=== PATIENT | female | born 1990 | race Caucasian/White ===

== ENCOUNTER 2017-04-01 17:56 | Observation (INO) | payer BC ==
[~2017-04-01] VITALS: Ht 172.7 cm; Wt 71.3 kg
[2017-04-01] VITALS (7 sets, daily range): BP systolic 104–120; BP diastolic 65–73; PULSE 93–105; RESP 16–18; TEMP 98.4–99; O2SAT 94–99
[~2017-04-01 17:56] MED LIST: IBUP600T26 PO; LORTA5 PO
[2017-04-01] MEDS ORDERED: DEPA500T PO (18:09)
[2017-04-01] MEDS ORDERED: SULF1TAB23 PO (18:09)
[2017-04-01] MEDS ORDERED: SODIUM CHLOR 0.9% 1000 ML INJ 1,000 ML IV SCH (18:13)
--- NOTE | 2017-04-01 18:13 | PD ---
HPI Chief Complaint: Pain: Acute or Chronic Time Seen by Provider: 18:08 Travel History International Travel<30 days: Yes Contact w/Intl Traveler<30days: Yes Name of Country Traveled to: [place] Traveled to known affect area: No History of Present Illness HPI 26-year-old female presents the emergency department with sudden onset generalized myalgias to both lower extremities and upper extremities since taking prescribed Bactrim for a UTI that was diagnosed this morning by her primary care physician. Patient states she went home and took a nap and woke up with pain in the lower extremities which has worsened over the past 5 hours. She denies fever, chills, shortness of breath, difficulty swallowing or other symptoms. Patient's pain is a 9 out of 10 and is a generalized pain. She is worse with movement and with palpation. There is no rash. She has no abdominal pain, nausea, or flank pain. Patient does have a history of returning recently from 2 weeks in [place] and [facility]. Patient states she felt fine this morning. Patient has a history of allergies to bee stings and Percocet. PFSH Past Medical History Hx Anticoagulant Therapy: No ADHD: Yes Asthma: Yes (EXERCISE INDUCED) Cancer: No Cardiovascular Problems: No Diabetes: No Diminished Hearing: No Glaucoma: No Hepatitis: No Hiatal Hernia: No Hypertension: No Musculoskeletal: Yes (TORN ACL) Respiratory: Yes (asthma) Immunizations Current: Yes Migraines: Yes Thyroid Disease: No PNEUMOCCOCAL Vaccine (Year): 2 ?: Not Past Surgical History Oral Surgery: Yes (t and a) Pacemaker: No Tonsillectomy: Yes (ADENOIDS REMOVED ALSO 1997) Other Surgery: Yes (acl repair) Social History Alcohol Use: Yes (rare) Tobacco Use: No Substance Use: No Allergies-Medications (Allergen,Severity, Reaction): Coded Allergies: Bee Sting (Verified Allergy, Severe, Anaphylaxis, 04/01/17) Percocet (Verified Allergy, Severe, Nausea/Vomiting, 04/01/17) Reported Meds & Prescriptions Reported Meds & Active Scripts Active Reported Sulfamethoxazole-Trimethoprim 800-160 Mg Tab 1 Tab PO BID Depakote DR (Divalproex Sodium) 500 Mg Tabdr 500 Mg PO BID Review of Systems General / Constitutional: No: Fever Eyes: No: Visual changes HENT: No: Headaches Cardiovascular: No: Chest Pain or Discomfort Respiratory: No: Shortness of Breath Gastrointestinal: No: Abdominal Pain Genitourinary: Positive: Dysuria Musculoskeletal: Positive: Myalgias, No: Pain Skin: No Rash Neurologic: No: Weakness Psychiatric: No: Depression Endocrine: No: Polydipsia Hematologic/Lymphatic: No: Easy Bruising Physical Exam Narrative GENERAL: Patient appears in mild to moderate distress SKIN: Warm and dry. No rash. Normal color. Normal turgor. HEAD: Atraumatic. Normocephalic. EYES: Pupils equal and round. No scleral icterus. No injection or drainage. ENT: No nasal bleeding or discharge. Mucous membranes pink and moist. Pharynx clear. Airway is patent. No nuchal rigidity. NECK: Trachea midline. No JVD. Supple and nontender. No lymphadenopathy. CARDIOVASCULAR: Regular rate and rhythm. RESPIRATORY: No accessory muscle use. Clear to auscultation. Breath sounds equal bilaterally. GASTROINTESTINAL: Abdomen soft, non-tender, nondistended. Hepatic and splenic margins not palpable. MUSCULOSKELETAL: Extremities without clubbing, cyanosis, or edema. No obvious deformities. Patient has generalized muscular pain which is soft tissue in nature to both upper and lower extremities as well as back. NEUROLOGICAL: Awake and alert. No obvious cranial nerve deficits. Motor grossly within normal limits. Five out of 5 muscle strength in the arms and legs. Normal speech. PSYCHIATRIC: Appropriate mood and affect; insight and judgment normal. Data Data Last Documented VS Vital Signs Date Time Temp Pulse Resp B/P Pulse Ox O2 Delivery O2 Flow Rate FiO2 04/01/17 19:42 96 18 111/66 96 Room Air 04/01/17 17:59 98.4 Orders Complete Blood Count With Diff (04/01/17 18:13) Comprehensive Metabolic Panel (04/01/17 18:13) Ecg Monitoring (04/01/17 18:13) Iv Access Insert/Monitor (04/01/17 18:13) Oximetry (04/01/17 18:13) Diphenhydramine Inj (Benadryl Inj) (04/01/17 18:15) Methylprednisolone So Succ Inj (Solumedr (04/01/17 18:15) Famotidine Inj (Pepcid Inj) (04/01/17 18:15) Sodium Chlor 0.9% 1000 Ml Inj (Ns 1000 M (04/01/17 18:13) Sodium Chloride 0.9% Flush (Ns Flush) (04/01/17 18:15) Ketorolac Inj (Toradol Inj) (04/01/17 18:15) Westergren Sedimentation Rate (04/01/17 18:13) C-Reactive Protein (Crp) (04/01/17 18:13) Lactic Acid (04/01/17 18:18) Methylprednisolone So Succ Inj (Solumedr (04/01/17 18:45) Blood Culture (04/01/17 19:27) Influenzae A/B Antigen (04/01/17 19:27) Morphine Inj (Morphine Inj) (04/01/17 19:30) Ondansetron Inj (Zofran Inj) (04/01/17 19:30) Creatine Kinase (Cpk) (04/01/17 18:25) CKMB (04/01/17 18:25) CKMB% (04/01/17 18:25) Sodium Chlor 0.9% 1000 Ml Inj (Ns 1000 M (04/01/17 20:30) Drug Screen, Random Urine (04/01/17 20:26) Ed Urine Pregnancytest Poc (04/01/17 20:26) Admit Order (Ed Use Only) (04/01/17 21:25) Labs Laboratory Tests Test 04/01/17 04/01/17 18:25 20:30 White Blood Count 13.2 TH/MM3 Red Blood Count 4.57 MIL/MM3 Hemoglobin 14.2 GM/DL Hematocrit 42.1 % Mean Corpuscular Volume 92.1 FL Mean Corpuscular Hemoglobin 31.0 PG Mean Corpuscular Hemoglobin 33.7 % Concent Red Cell Distribution Width 12.9 % Platelet Count 241 TH/MM3 Mean Platelet Volume 8.5 FL Neutrophils (%) (Auto) 85.9 % Lymphocytes (%) (Auto) 7.4 % Monocytes (%) (Auto) 5.9 % Eosinophils (%) (Auto) 0.3 % Basophils (%) (Auto) 0.5 % Neutrophils # (Auto) 11.3 TH/MM3 Lymphocytes # (Auto) 1.0 TH/MM3 Monocytes # (Auto) 0.8 TH/MM3 Eosinophils # (Auto) 0.0 TH/MM3 Basophils # (Auto) 0.1 TH/MM3 CBC Comment AUTO DIFF Differential Comment AUTO DIFF CONFIRMED Erythrocyte Sedimentation Rate 5 mm/hr Sodium Level 139 MEQ/L Potassium Level 4.2 MEQ/L Chloride Level 107 MEQ/L Carbon Dioxide Level 23.5 MEQ/L Anion Gap 9 MEQ/L Blood Urea Nitrogen 11 MG/DL Creatinine 0.92 MG/DL Estimat Glomerular Filtration 75 ML/MIN Rate Random Glucose 93 MG/DL Lactic Acid Level 1.4 mmol/L Calcium Level 9.0 MG/DL Total Bilirubin 0.4 MG/DL Aspartate Amino Transf 65 U/L (AST/SGOT) Alanine Aminotransferase 54 U/L (ALT/SGPT) Alkaline Phosphatase 63 U/L Total Creatine Kinase 1378 U/L Creatine Kinase MB 1.0 NG/ML Creatine Kinase MB % 0.1 % C-Reactive Protein LESS THAN 0.29 MG/DL Total Protein 7.5 GM/DL Albumin 3.8 GM/DL Urine Opiates Screen NEG Urine Barbiturates Screen NEG Urine Amphetamines Screen NEG Urine Benzodiazepines Screen NEG Urine Cocaine Screen NEG Urine Cannabinoids Screen NEG MDM Medical Decision Making Medical Screen Exam Complete: Yes Emergency Medical Condition: Yes Differential Diagnosis Reaction to Bactrim. Myalgias. Lyme disease. Guillain-Dunn. Viral syndrome. Narrative Course Patient appears medically stable at time of exam. Labs ordered including CBC, CMP, lactic acid, sedimentation rate, CRP, and urinalysis. IV access is obtained patient is given 125 mg Solu-Medrol IV as well as 25 mg Benadryl and 20 mg Pepcid IV. Patient is given 30 mg Toradol IV. Patient is given 1000 mL normal saline bolus. Labs show slight leukocytosis of 13.4, lactic acid is normal at 1.4, sedimentation rate is 5, and CRP is normal as well. Patient shows slightly elevated liver enzymes with AST of 65 and ALT of 54. Patient is discussed with both Dr. Salcido and Dr. Wild, and flu tests, CPK are added on. 2030 hrs. patient is reassessed and found to be improved after 4 mg of morphine IV and 4 mg IV Zofran. Creatinine kinase is elevated at 1378. Urinalysis is still pending. Call was placed to the hospitalist for admission. Patient discussed with Dr. Gallo who agreed to admit the patient for observation. Diagnosis Primary Impression: Generalized muscle ache Additional Impression: Elevated CPK Admitting Information Admitting Physician Requests: Observation Condition: Stable Camacho Philip Apr 01, 2017 18:13
[2017-04-01] MEDS ORDERED: FAMOTIDINE 20 MG/2 ML VIAL IV PUSH ONE (18:15)
[2017-04-01] MEDS ORDERED: diphenhydrAMINE HCL 50 MG/ML VIAL IVP ONE (18:15)
[2017-04-01] MEDS ORDERED: KETOROLAC TROMETHAMINE 30 MG/ML (IVP) VIAL IV PUSH ONE (18:15)
[2017-04-01] MEDS ORDERED: methylPREDNISolone SOD SUCC 125 MG/2 ML VIAL IM ONE (18:15)
[2017-04-01] MEDS ORDERED: SODIUM CHLORIDE 0.9% FLUSH 10 ML FLUSH IV FLUSH PRN ×2 (18:15→22:00)
[2017-04-01 18:35] LABS: AUTOMATED NEUTROPHIL # 11.3 TH/MM3 (1.8-7.7); BASOPHIL # 0.1 TH/MM3 (0-0.2); BASOPHIL % 0.5 % (0.0-2.0); EOSINOPHIL % 0.3 % (0.0-4.0); HEMATOCRIT 42.1 % (35.0-46.0); LYMPH % 7.4 % (9.0-44.0); MEAN CELL VOLUME 92.1 FL (80.0-100.0); MEAN CORPUSCULAR HGB CONC 33.7 % (32.0-36.0); MONO % 5.9 % (0.0-8.0); NEUT % 85.9 % (16.0-70.0); PLATELET COUNT 241 TH/MM3 (150-450); RED BLOOD COUNT 4.57 MIL/MM3 (4.00-5.30); RED CELL DISTRIBUTION WIDTH 12.9 % (11.6-17.2); WHITE BLOOD COUNT 13.2 TH/MM3 (4.0-11.0)
[2017-04-01 18:42] LABS: HEMO FLAGS AUTO DIFF
[2017-04-01 18:44] LABS: CHLORIDE 107 MEQ/L (98-107); POTASSIUM 4.2 MEQ/L (3.5-5.1); SODIUM (NA) 139 MEQ/L (136-145)
[2017-04-01] MEDS ORDERED: methylPREDNISolone SOD SUCC 125 MG/2 ML VIAL IV PUSH ONE (18:45)
[2017-04-01 18:48] LABS: ANION GAP 9 MEQ/L (5-15); BICARBONATE 23.5 MEQ/L (21.0-32.0); BLOOD UREA NITROGEN 11 MG/DL (7-18)
[2017-04-01 18:51] LABS: ALT (GPT) 54 U/L (10-53); AST (GOT) 65 U/L (15-37); GLOMERULAR FILTRATION RATE 75 ML/MIN (>89)
[2017-04-01 18:52] LABS: TOTAL BILIRUBIN ADULT 0.4 MG/DL (0.2-1.0)
[2017-04-01 18:53] LABS: ALKALINE PHOSPHATASE 63 U/L (45-117)
[2017-04-01 19:03] LABS: SCAN/DIFF AUTO DIFF CONFIRMED
[2017-04-01] MEDS ORDERED: MORPHINE SULFATE 4 MG/ML INJ IV PUSH ONE (19:30)
[2017-04-01] MEDS ORDERED: ONDANSETRON HCL 4 MG/2 ML VIAL IV PUSH ONE (19:30)
[2017-04-01 19:56] LABS: CREATINE KINASE 1378 U/L (26-192)
[2017-04-01] MEDS ORDERED: SODIUM CHLOR 0.9% 1000 ML INJ 1,000 ML IV ONE (20:30)
[2017-04-01 21:07] LABS: BARBITURATES, URINE NEG (NEG); COCAINE, URINE NEG (NEG)
[2017-04-01 21:08] LABS: AMPHETAMINE, URINE NEG (NEG)
[2017-04-01] MEDS ORDERED: NALOXONE HCL 0.4 MG/ML AMP IV PRN (22:00)
[2017-04-01] MEDS ORDERED: MAGNESIUM HYDROXIDE SUSP 30 ML CUP PO PRN (22:00)
[2017-04-01] MEDS ORDERED: LACTULOSE SYRUP 20 GM/30 ML CUP PO PRN (22:00)
[2017-04-01] MEDS ORDERED: ACETAMINOPHEN 325 MG TAB PO PRN (22:00)
[2017-04-01] MEDS ORDERED: BISACODYL 10 MG SUPP RECTAL PRN (22:00)
[2017-04-01] MEDS ORDERED: SENNOSIDES 8.6 MG TAB PO PRN (22:00)
[2017-04-01] MEDS: D5-1/2 NS + KCL 20 MEQ INJ 1,000 ML IV SCH (22:32)
[2017-04-01] MEDS: DIVALPROEX SODIUM E.R. 500 MG TAB PO SCH (23:51)
[2017-04-02] VITALS: BP 104/60; PULSE 101; RESP 16; TEMP 97.1; O2SAT 96
[2017-04-02 06:09] LABS: CHLORIDE 109 MEQ/L (98-107); POTASSIUM 4.6 MEQ/L (3.5-5.1); SODIUM (NA) 139 MEQ/L (136-145)
[2017-04-02 06:15] LABS: ANION GAP 7 MEQ/L (5-15); BICARBONATE 23.3 MEQ/L (21.0-32.0)
[2017-04-02 06:52] LABS: ALKALINE PHOSPHATASE 64 U/L (45-117); ALT (GPT) 44 U/L (10-53); AST (GOT) 43 U/L (15-37); BLOOD UREA NITROGEN 10 MG/DL (7-18); CREATINE KINASE 702 U/L (26-192); GLOMERULAR FILTRATION RATE 70 ML/MIN (>89); TOTAL BILIRUBIN ADULT 0.5 MG/DL (0.2-1.0)
[2017-04-02] MEDS ORDERED: cefTRIAXone INJ 1,000 MG in SODIUM CHLORIDE 0.9% INJ 100 ML IV ONE (07:00)
[2017-04-02] MEDS ORDERED: ACET1TAB86 PO (07:11)
[2017-04-02 07:17] LABS: CKMB 0.6 NG/ML (0.5-3.6)
--- NOTE | 2017-04-02 07:19 | HHI.DS ---
Discharge Summary Admission Date Apr 01, 2017 at 21:28 Admitting Diagnosis Elevated CPK/Myalgia (1) Rhabdomyolysis Diagnosis: Principal Plan: Could be a combo of septra, recent food poisoning and use of pre work out supplements containing caffeine and creatine (however last use was more than 24 hours prior to onset of symptoms). Also potential relation to eating sushi, however last intake was reported 4 days prior to onset of symptoms. Avoid supplement use for at least a week and prefer not to use at all, however she has been using it for 6 years without prior problems, decrease work out intensity until symptoms resolved, increase fluid intake and monitor symptoms. Check TSH as that can be associated with rhabdo, however she isn't symptomatic from thyroid standpoint. (2) Urinary tract infection Diagnosis: Principal Plan: Septra stopped and given rocephin 1 gm IV prior to discharge. (3) Food poisoning Diagnosis: Secondary Plan: 5 weeks ago in [place] from salmon intake. Still with GI symptoms and GERD. Had recommended zantac 150mg BID yesterday in the office. Continue as outpt. Check stool O and P, pending hepatitis testing. (4) Migraine Diagnosis: Secondary Plan: may continue outpatient depakote Brief History 26 yo WF with sudden onset diffuse muscle pain and difficulty walking yesterday PM, had taken 1 dose of septra prior to occurrance and had taken a nap. No injuries known. HAd vomiting/diarrhea 5 weeks prior after raw salmon with persistant GI symptoms (mild), no fever. She does have regular work out routine but last w/o was more than 24 hours prior to onset of symptoms. Has work out supplement use with creatine and caffeine. CBC/BMP: 04/01/17 1825 04/02/17 0536 Significant Findings Laboratory Tests Test 04/01/17 04/02/17 18:25 05:36 White Blood Count 13.2 TH/MM3 (4.0-11.0) Neutrophils (%) (Auto) 85.9 % (16.0-70.0) Lymphocytes (%) (Auto) 7.4 % (9.0-44.0) Neutrophils # (Auto) 11.3 TH/MM3 (1.8-7.7) Estimat Glomerular Filtration 75 ML/MIN (>89) 70 ML/MIN (>89) Rate Aspartate Amino Transf 65 U/L (15-37) 43 U/L (15-37) (AST/SGOT) Alanine Aminotransferase 54 U/L (10-53) (ALT/SGPT) Total Creatine Kinase 1378 U/L 702 U/L (26-192) (26-192) Chloride Level 109 MEQ/L (98-107) Random Glucose 276 MG/DL (74-106) Albumin 3.3 GM/DL (3.4-5.0) PE at Discharge Gen: WDWF, no distress but tired after little sleep HEENT: benign CV : RRR, no murmur Lungs: CTA bilaterally, no wheezing Abd: soft, NT, normal BS EXt: no pain to palpation of the arms, legs, etc. Stands and walks independently without pain, negative dwayne's, no swelling or skin changes, appears well Hospital Course improved in symptoms with 1 dose morphine and IVF Pt Condition on Discharge: Good Discharge Disposition: Discharge Home Discharge Instructions DIET: Follow Instructions for: As Tolerated, No Restrictions Activities you can perform: Regular-No Restrictions Other Activity Instructions: decrease work out intensity as discussed above. light activity for the next 2 days prior to starting work out again. Jessica Gallo MD Apr 02, 2017 07:19
[2017-04-02] MEDS: D5-1/2 NS + KCL 20 MEQ INJ 1,000 ML IV SCH (07:47)
[2017-04-02 08:00] VITALS: BP 110/66; PULSE 102; RESP 16; TEMP 97.6; O2SAT 98
[2017-04-02] MEDS: DIVALPROEX SODIUM E.R. 500 MG TAB PO SCH (08:14)
[2017-04-02] MEDS ORDERED: DOCUSATE SODIUM 50 MG/SENNA 8.6 MG TAB PO SCH (09:00)
[2017-04-02] MEDS ORDERED: SODIUM CHLORIDE 0.9% FLUSH 10 ML FLUSH IV FLUSH SCH (09:00)
--- NOTE | 2017-04-02 09:45 | MH ---
cc: HOWARD SANCHEZ DATE OF ADMISSION: 04/01/2017 CHIEF COMPLAINT Severe muscle pain. ADMISSION DIAGNOSIS: Rhabdomyolysis. HISTORY OF PRESENT ILLNESS Caro is a 26-year-old white female who presented to the emergency department with sudden onset of generalized pain to both lower extremities, Upper extremities, and shoulders after taking a dose of Septra and taking a nap yesterday afternoon. I had seen her in the office in the morning for urinary tract infection symptoms and chronic gastrointestinal upset since and episode of food poisoning in [place] approximately five weeks prior that occurred after having raw [place] at a breakfast bar at her hotel. At that time she had [id number] days of nausea, vomiting and diarrhea with severe weakness and had improved over about a week. She did have another episode at a different hotel where she had a similar breakfast and had recurrent symptoms for about a day. She does apparently eat sushi fairly frequently and had sushi approximately four days ago. Other considerations are that she works out on a regular basis with heavy weights and aerobics. She does take a pre and post work out supplement that she showed me. The pre work out med has caffeine and creatine however, she is taking half of the recommended dosing on the bottle. She has a multivitamin that should not be a causative factor and the post workout supplement is really just B vitamins and does not contain any substances that should cause rhabdomyolysis. She has had chronic heartburn and GI upset since being in [place] but no diarrhea and no bloody stools. No fevers, no other muscle pain until yesterday. Last intake of Sushi she states was about four days ago. She has had no rash or difficulty breathing. PRESENT HISTORY: 1. The past medical history is significant for history of ADHD. 2. exercise-induced asthma but she does not use medications. 3. She had a torn ACL status post knee surgery. 4. History of migraines currently on Depakote. PAST SURGICAL HISTORY 1. Oral surgery 2. tonsillectomy 3. ACL repair. SOCIAL HISTORY She has rare alcohol use. No tobacco and no other substance use. She is single. 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 ALLERGIES BEE STINGS, WHICH WAS ANAPHYLAXIS, SHE HAS AN EPIPEN WHICH SHE CAN USE NEEDED BUT HAS NOT NEEDED TO USE IT. PERCOCET CAUSES SEVERE NAUSEA AND VOMITING. MEDICATIONS 1. Depakote ER 500 mg p.o. b.i.d. 2. she only taken one dose 3. otherwise her Multivitamins. 4. Pre work out and post work out supplements. REVIEW OF SYSTEMS She denies any vision changes or hearing changes. No sore throat. No upper respiratory symptoms. No swelling to the neck. No difficulty breathing. No cough. No shortness of breath. No chest discomfort. She has had ongoing abdominal discomfort since [place] five weeks ago with her with her food poisoning, she notes nausea. She had an episode of vomiting last week that hit her kind of out of the blue. She denies any diarrhea, no blood in her stool. No black tarry stools. She has had dysuria for the past couple of days with the urine that shows nitrites, leukocytes yesterday and was started on the . As of yesterday morning she had no lower extremity pain. No rashes. She had good range of motion of the office yesterday, by yesterday evening at 5 o'clock she had a severe leg, shoulder and arm pain. This morning she is feeling significantly better. She denies any sexual activity. No blood transfusions. No IV drug use. Remainder of ROS is negative. OBJECTIVE VITAL SIGNS: She has been afebrile since admission the highest temperature is 99.0 heart rate to been slightly elevated in the 90s to 100 range. She is currently in the upper 80s on exam this morning, respiratory rate has been unlabored and 16, blood pressures been within normal limits at 104/70 up to max of 120/69 O2 sats have been 96-99% on room air. IN GENERAL: In general she is a well developed white female in no acute distress. She is not overly muscular but appropriate. HEAD, EYES, EARS, NOSE, AND THROAT: Benign. NECK: Supple. No lymphadenopathy. No supraclavicular adenopathy. CARDIOVASCULAR SYSTEM: Regular rate and rhythm without murmurs, rubs or gallops. LUNGS: Lungs were clear bilaterally. No wheezes, no rhonchi. ABDOMEN: The abdomen is soft. She has normal bowel sounds. Nondistended. She does not appear to be tender this morning, much less so than yesterday. EXTREMITIES: She has full range of motion of her shoulders and arms. She has no pain to palpation this morning and no rashes to the arms. lower extremities show no rashes. She has a negative Homans bilaterally. Able to palpate her legs without pain. She has 5/5 strength bilaterally. She is able to stand independently and walk and bend her knees without any difficulty this morning. LABORATORY DATA White count was slightly elevated last night at 13.2, hemoglobin 14.2, hematocrit 42.1, platelets of 241, mild left shift of neutrophils at 85.9 sed rate was 5 last evening. GFR was 75. She had a random glucose of 95. Lactic acid was within normal limits at 1.4. AST was 65, ALT 54, CPK of 1378, MB percent is less than 0.1. C-reactive protein was 0.29 protein and albumin within normal limits. Toxicology was negative for opiates, barbiturates, amphetemines, benzodiazepine, cocaine and cannabinoids. This morning her labs show significant sugar of 276, however, she is on D5 half-normal saline, GFR was slightly lower at 70. AST is 43 and ALT 44 nearly back to normal. CK has gone down to 702. Pending thyroid testing and hepatitis testing. ASSESSMENT AND PLAN: 1. Acute rhabdomyolysis, likely a combination of her supplement use, generalized illness, status post food poisoning and urinary tract infection. There is a very low incidence of rhabdomyolysis associated with Septra use and that still could potentially be an issue. Will complete her current bolus of IV fluids and then have her eat and drink by mouth. If she is able to get up and walk around today without any difficulty I will discharge her home later today. Should anything be abnormal with her hepatitis panel we will definitely contact her for further evaluation. Also checked in the thyroid is thyroid can be associated with rhabdomyolysis. 2. Urinary tract infection. Will give her dose of Rocephin IV today and that should hopefully take urinary tract infection. There is a culture pending for my office and was sent yesterday morning. She is still slightly symptomatic in that regard. 3. Migraine she is on the Depakote, I do not see that would be any issue, she may continue that at home. 4. Recent food poisoning from raw fish, I do not suspect that this is a toxin induced illness as that was four to five weeks ago, her last Sushi intake was four days ago. Toxin symptoms should have come up prior to 12 hours after ingestion, not four days later. I would like her to give a stool sample to check for parasitic disease which could potentially be an issue. I do not suspect that she has salmonella or Shigella as she has not had any bloody diarrhea, no diarrhea actually at all. We will continue to evaluate that as an outpatient. MD TAO Bowen/dawna /6:57 AM /9:14 AM MTDD
== END 2017-04-02 10:45 | disposition home or self-care (01) ==
LOC: PHED 17:56 → PHEDA 21:28 → PH3A 22:20
PROVIDERS: ADMIT Family Medicine; ATTEND Family Medicine
DX: M62.82 Rhabdomyolysis (principal); N39.0 Urinary tract infection, site not specified; A05.9 Bacterial foodborne intoxication, unspecified; K21.9 Gastro-esophageal reflux disease without esophagitis; G43.909 Migraine, unspecified, not intractable, without status migrainosus
CPT/HCPCS: 80053; 80074; 80307; 82550; 82552; 83605; 84443; 84703; 85025; 85652; 86140; 87040; 87804; 96361; 96374; 96375; 99285; G0378; J0696; J1200; J1885; J2270; J2405; J2930; J3480; J7030

== ENCOUNTER 2017-12-02 10:01 | Emergency (ER) | payer BC ==
[~2017-12-02] VITALS: Ht 172.7 cm; Wt 72.0 kg
[~2017-12-02 10:01] MED LIST changes: +ACET325T15 PO; +DEPA500T PO; -IBUP600T26 PO; -LORTA5 PO
[2017-12-02 10:03] VITALS: BP 118/69; PULSE 84; RESP 16; TEMP 98.2; O2SAT 99
--- NOTE | 2017-12-02 10:20 | PD ---
HPI Chief Complaint: GI Complaint Time Seen by Provider: 10:10 Travel History International Travel<30 days: No Contact w/Intl Traveler<30days: No Traveled to known affect area: No History of Present Illness HPI This 27-year-old female is complaining of lower abdominal pain. The pain is worse when she eats. Been going on for about a day. She had some chills earlier. Her she had a period last week. She says she has not been sexually active for several months. She has been having some headaches for several days. She has a history of migraine headaches.. PFSH Past Medical History Hx Anticoagulant Therapy: No ADHD: Yes Asthma: Yes (EXERCISE INDUCED) Cancer: No Cardiovascular Problems: No Diabetes: No Diminished Hearing: No Endocrine: No Glaucoma: No Genitourinary: No Hepatitis: No Hiatal Hernia: No Hypertension: No Musculoskeletal: Yes (TORN ACL) Neurologic: Yes Psychiatric: No Reproductive: No Respiratory: Yes (asthma) Immunizations Current: Yes Migraines: Yes Thyroid Disease: No PNEUMOCCOCAL Vaccine (Year): 2 ?: Not LMP: ONE WEEK AGO Past Surgical History Body Medical Devices: pin in L knee Oral Surgery: Yes (t and a) Pacemaker: No Tonsillectomy: Yes (ADENOIDS REMOVED ALSO 1997) Other Surgery: Yes (acl repair) Social History Alcohol Use: Yes (rare) Tobacco Use: No Substance Use: No Allergies-Medications (Allergen,Severity, Reaction): Coded Allergies: acetaminophen (Unverified Allergy, Severe, Nausea/Vomiting, 12/02/17) bee venom protein (honey bee) (Unverified Allergy, Severe, Anaphylaxis, ) oxycodone (Unverified Allergy, Severe, Nausea/Vomiting, 12/02/17) Reported Meds & Prescriptions Reported Meds & Active Scripts Active Reported Depakote DR (Divalproex Sodium) 500 Mg Tabdr 500 Mg PO DAILY Review of Systems General / Constitutional: Positive: Chills, No: Fever Eyes: No: Diploplia, Blurred Vision HENT: No: Headaches, Vertigo Cardiovascular: No: Chest Pain or Discomfort, Palpitations Respiratory: No: Cough, Shortness of Breath Genitourinary: Positive: Pelvic Pain, No: Urgency Musculoskeletal: No: Myalgias, Arthralgias Skin: No Rash, No Itching Neurologic: No: Weakness Endocrine: No: Heat Intolerance, Cold Intolerance Hematologic/Lymphatic: No: Easy Bruising Physical Exam Narrative GENERAL: Well-developed female SKIN: Focused skin assessment warm/dry. HEAD: Atraumatic. Normocephalic. EYES: Pupils equal and round. No scleral icterus. No injection or drainage. ENT: No nasal bleeding or discharge. Mucous membranes pink and moist. NECK: Trachea midline. No JVD. CARDIOVASCULAR: Regular rate and rhythm. No murmur appreciated. RESPIRATORY: No accessory muscle use. Clear to auscultation. Breath sounds equal bilaterally. GASTROINTESTINAL: Abdomen soft, non-tender, nondistended. Hepatic and splenic margins not palpable. Pelvic: There is a moderate amount of whitish discharge. There is really no pain with movement of the cervix and no pelvic masses are felt MUSCULOSKELETAL: No obvious deformities. No clubbing. No cyanosis. No edema. NEUROLOGICAL: Awake and alert. No obvious cranial nerve deficits. Motor grossly within normal limits. Normal speech. PSYCHIATRIC: Appropriate mood and affect; insight and judgment normal. Data Data Last Documented VS Vital Signs Date Time Temp Pulse Resp B/P (MAP) Pulse Ox O2 Delivery O2 Flow Rate FiO2 12/02/17 10:03 98.2 84 16 118/69 (85) 99 Orders Orders Complete Blood Count With Diff (12/02/17 10:16) Comprehensive Metabolic Panel (12/02/17 10:16) Lipase (12/02/17 10:16) Urinalysis - C+S If Indicated (12/02/17 10:16) Beta Hcg (Quant/Titer) (12/02/17 10:16) Sodium Chlor 0.9% 1000 Ml Inj (Ns 1000 M (12/02/17 10:30) Ondansetron Inj (Zofran Inj) (12/02/17 10:30) Ketorolac Inj (Toradol Inj) (12/02/17 10:30) Gc And Chlamydia Pcr (12/02/17 11:17) Wet Prep Profile (12/02/17 11:17) Prochlorperazine Inj (Compazine Inj) (12/02/17 11:30) Labs Laboratory Tests Test 12/02/17 10:25 12/02/17 10:36 12/02/17 11:15 Urine Collection Type CLEAN CATCH Urine Color STRAW Urine Turbidity SLIGHTY CLOUDY Urine pH 5.5 Urine Specific [place] LESS/EQUAL 1.005 Urine Protein NEG mg/dL Urine Glucose (UA) NEG mg/dL Urine Ketones NEG mg/dL Urine Occult Blood NEG Urine Nitrite NEG Urine Bilirubin NEG Urine Urobilinogen 0.2 MG/DL Urine Leukocyte Esterase NEG Urine WBC 0-2 /hpf Urine Squamous Epithelial Cells > 8 /hpf Urine Bacteria FEW /hpf Microscopic Urinalysis Comment CULT NOT INDICATED Urine Collection Time 10:25 White Blood Count 6.7 TH/MM3 Red Blood Count 4.67 MIL/MM3 Hemoglobin 14.3 GM/DL Hematocrit 42.8 % Mean Corpuscular Volume 91.7 FL Mean Corpuscular Hemoglobin 30.7 PG Mean Corpuscular Hemoglobin Concent 33.5 % Red Cell Distribution Width 12.7 % Platelet Count 297 TH/MM3 Mean Platelet Volume 7.8 FL Neutrophils (%) (Auto) 60.4 % Lymphocytes (%) (Auto) 30.1 % Monocytes (%) (Auto) 8.3 % Eosinophils (%) (Auto) 0.4 % Basophils (%) (Auto) 0.8 % Neutrophils # (Auto) 4.0 TH/MM3 Lymphocytes # (Auto) 2.0 TH/MM3 Monocytes # (Auto) 0.6 TH/MM3 Eosinophils # (Auto) 0.0 TH/MM3 Basophils # (Auto) 0.1 TH/MM3 CBC Comment DIFF FINAL Differential Comment Blood Urea Nitrogen 14 MG/DL Creatinine 0.72 MG/DL Random Glucose 88 MG/DL Total Protein 8.0 GM/DL Albumin 4.0 GM/DL Calcium Level 9.1 MG/DL Alkaline Phosphatase 69 U/L Aspartate Amino Transf (AST/SGOT) 13 U/L Alanine Aminotransferase (ALT/SGPT) 17 U/L Total Bilirubin 0.2 MG/DL Sodium Level 137 MEQ/L Potassium Level 4.0 MEQ/L Chloride Level 104 MEQ/L Carbon Dioxide Level 24.2 MEQ/L Anion Gap 9 MEQ/L Estimat Glomerular Filtration Rate 99 ML/MIN Lipase 155 U/L Human Chorionic Gonadotropin, Quant LESS THAN 1 MIU/ML Clue Cells (Wet Prep) NONE SEEN Vaginal Trichomonas (Wet Prep) NONE SEEN Vaginal Yeast (Wet Prep) NONE SEEN MDM Medical Decision Making Medical Screen Exam Complete: Yes Emergency Medical Condition: Yes Medical Record Reviewed: Yes Differential Diagnosis Differential includes pelvic inflammatory disease, ovarian cyst, nonspecific abdominal pain Narrative Course Patient was given Toradol and Zofran with some improvement in her symptoms. test is negative. Her white count is negative. Pelvic exam was not suggestive of ovarian cysts or pelvic inflammatory disease. Impression is nonspecific abdominal pain Diagnosis Primary Impression: Nonspecific abdominal pain Disposition: 01 DISCHARGE HOME Condition: Stable Mahamed Perez MD Dec 02, 2017 10:20
[2017-12-02] MEDS ORDERED: ONDANSETRON HCL 4 MG/2 ML VIAL IV PUSH ONE (10:30)
[2017-12-02] MEDS ORDERED: KETOROLAC TROMETHAMINE 30 MG/ML (IVP) VIAL IV PUSH ONE (10:30)
[2017-12-02] MEDS ORDERED: SODIUM CHLOR 0.9% 1000 ML INJ 1,000 ML IV ONE (10:30)
[2017-12-02 10:44] LABS: BASOPHIL # 0.1 TH/MM3 (0-0.2); BASOPHIL % 0.8 % (0.0-2.0); EOSINOPHIL % 0.4 % (0.0-4.0); HEMATOCRIT 42.8 % (35.0-46.0); HEMOGLOBIN 14.3 GM/DL (11.6-15.3); LYMPH % 30.1 % (9.0-44.0); MEAN CELL VOLUME 91.7 FL (80.0-100.0); MEAN CORPUSCULAR HEMOGLOBIN 30.7 PG (27.0-34.0); MEAN CORPUSCULAR HGB CONC 33.5 % (32.0-36.0); MEAN PLATELET VOLUME 7.8 FL (7.0-11.0); MONO % 8.3 % (0.0-8.0); MONOCYTE # 0.6 TH/MM3 (0-0.9); NEUT % 60.4 % (16.0-70.0); PLATELET COUNT 297 TH/MM3 (150-450); RED BLOOD COUNT 4.67 MIL/MM3 (4.00-5.30); RED CELL DISTRIBUTION WIDTH 12.7 % (11.6-17.2); WHITE BLOOD COUNT 6.7 TH/MM3 (4.0-11.0)
[2017-12-02 10:44] LABS: BILIRUBIN, URINE NEG (NEG); BLOOD, URINE NEG (NEG); GLUCOSE,URINE NEG (NEG); KETONE, URINE NEG (NEG); NITRITE,URINE NEG (NEG); PH, URINE 5.5 (5.0-8.5); URINE LEUKOCYTE ESTERASE NEG (NEG)
[2017-12-02 10:48] LABS: URINE COLOR STRAW (YELLW/STRAW)
[2017-12-02 10:49] LABS: BACTERIA, URINE FEW /hpf; SQUAMOUS EPITHELIAL CELL URINE > 8 /hpf (0-5); WBC, URINE 0-2 /hpf (0-5)
[2017-12-02 10:54] LABS: CHLORIDE 104 MEQ/L (98-107); SODIUM (NA) 137 MEQ/L (136-145)
[2017-12-02 10:58] LABS: BICARBONATE 24.2 MEQ/L (21.0-32.0); BLOOD UREA NITROGEN 14 MG/DL (7-18); CALCIUM 9.1 MG/DL (8.5-10.1); GLUCOSE,RANDOM 88 MG/DL (74-106)
[2017-12-02 11:01] LABS: ALT (GPT) 17 U/L (10-53); AST (GOT) 13 U/L (15-37); CREATININE 0.72 MG/DL (0.50-1.00); GLOMERULAR FILTRATION RATE 99 ML/MIN (>89)
[2017-12-02 11:03] LABS: TOTAL BILIRUBIN ADULT 0.2 MG/DL (0.2-1.0)
[2017-12-02 11:04] LABS: ALKALINE PHOSPHATASE 69 U/L (45-117)
[2017-12-02] MEDS ORDERED: PROCHLORPERAZINE INJ 10 MG/2 ML VIAL IV PUSH ONE (11:30)
[2017-12-02 13:04] VITALS: BP 124/84
== END 2017-12-02 13:09 | disposition home or self-care (01) ==
LOC: PHED 10:01
DX: R10.30 Lower abdominal pain, unspecified (principal); R51 Headache
CPT/HCPCS: 80053; 81001; 83690; 84702; 85025; 87210; 87491; 87591; 96374; 96375; 99284; J0780; J1885; J2405; J7030

== ENCOUNTER 2018-02-22 17:00 | Emergency (ER) | payer BC ==
[~2018-02-22] VITALS: Ht 172.7 cm; Wt 71.0 kg
[~2018-02-22 17:00] MED LIST changes: -ACET325T15 PO
[2018-02-22 17:09] VITALS: BP 112/72; PULSE 112; RESP 20; TEMP 98.6; O2SAT 96
[2018-02-22] MEDS ORDERED: DEPA500T PO (17:49)
[2018-02-22] MEDS ORDERED: BUPR150CR PO (17:49)
[2018-02-22 17:53] LABS: BASOPHIL # 0.1 TH/MM3 (0-0.2); BASOPHIL % 1.5 % (0.0-2.0); EOSINOPHIL % 0.3 % (0.0-4.0); HEMATOCRIT 43.7 % (35.0-46.0); LYMPH % 10.1 % (9.0-44.0); MEAN CELL VOLUME 94.9 FL (80.0-100.0); MEAN CORPUSCULAR HEMOGLOBIN 32.6 PG (27.0-34.0); MEAN CORPUSCULAR HGB CONC 34.3 % (32.0-36.0); MEAN PLATELET VOLUME 7.9 FL (7.0-11.0); MONO % 6.6 % (0.0-8.0); MONOCYTE # 0.6 TH/MM3 (0-0.9); NEUT % 81.5 % (16.0-70.0); PLATELET COUNT 298 TH/MM3 (150-450); WHITE BLOOD COUNT 9.7 TH/MM3 (4.0-11.0)
[2018-02-22] MEDS ORDERED: SODIUM CHLOR 0.9% 1000 ML INJ 1,000 ML IV ONE (18:00)
[2018-02-22] MEDS ORDERED: MORPHINE SULFATE 4 MG/ML INJ IV PUSH ONE (18:00)
[2018-02-22 18:03] LABS: CHLORIDE 104 MEQ/L (98-107); SODIUM (NA) 137 MEQ/L (136-145)
[2018-02-22 18:06] LABS: ALBUMIN 3.9 GM/DL (3.4-5.0); BICARBONATE 26.4 MEQ/L (21.0-32.0); BLOOD UREA NITROGEN 11 MG/DL (7-18); CALCIUM 8.9 MG/DL (8.5-10.1); GLUCOSE,RANDOM 96 MG/DL (74-106)
[2018-02-22 18:09] LABS: ALT (GPT) 17 U/L (10-53); AST (GOT) 11 U/L (15-37); CREATININE 0.99 MG/DL (0.50-1.00); GLOMERULAR FILTRATION RATE 68 ML/MIN (>89)
[2018-02-22 18:11] LABS: TOTAL BILIRUBIN ADULT 0.4 MG/DL (0.2-1.0); TOTAL PROTEIN 7.6 GM/DL (6.4-8.2)
[2018-02-22 18:12] LABS: ALKALINE PHOSPHATASE 64 U/L (45-117)
[2018-02-22] MEDS ORDERED: MORPHINE SULFATE 2 MG/ML SYRINGE IV ONE (18:15)
[2018-02-22] MEDS ORDERED: KETOROLAC TROMETHAMINE 30 MG/ML (IVP) VIAL IV PUSH ONE (18:45)
--- NOTE | 2018-02-22 19:02 | PD ---
HPI Chief Complaint: Allergic/Adverse Reaction Time Seen by Provider: 17:30 Travel History International Travel<30 days: No Contact w/Intl Traveler<30days: No Traveled to known affect area: No History of Present Illness HPI This is a 27-year-old female who presents to the emergency department with pain all over her body starting at her knees and working its way up that started after she woke up from sleep. Several hours prior to going to sleep she took a Bactrim for urinary tract infection. She says she has had adverse reactions to Bactrim in the past when she was hospitalized last year in the setting of rhabdomyolysis because her entire body hurt after she took Bactrim. Her pain is severe, constant, worse with movement and improved with rest. She denies any rash. She says she has not been under a lot of stress lately. PFSH Past Medical History Hx Anticoagulant Therapy: No ADHD: Yes Asthma: Yes (EXERCISE INDUCED) Depression: Yes Cancer: No Cardiovascular Problems: No Diabetes: No Diminished Hearing: No Endocrine: No Gastrointestinal Disorders: Yes Glaucoma: No Genitourinary: No Headaches: Yes Hepatitis: No Hiatal Hernia: No Hypertension: No Musculoskeletal: Yes (TORN ACL) Neurologic: Yes Psychiatric: No Reproductive: No Respiratory: Yes (asthma) Immunizations Current: Yes Migraines: Yes Thyroid Disease: No Influenza Vaccination: No PNEUMOCCOCAL Vaccine (Year): 2 ?: Not LMP: 02/08/18 Past Surgical History Body Medical Devices: pin in L knee Oral Surgery: Yes (t and a) Pacemaker: No Tonsillectomy: Yes (ADENOIDS REMOVED ALSO 1997) Other Surgery: Yes (acl repair) Social History Alcohol Use: Yes (rare) Tobacco Use: No Substance Use: No Allergies-Medications (Allergen,Severity, Reaction): Coded Allergies: acetaminophen (Unverified Allergy, Severe, Nausea/Vomiting, 02/22/18) bee venom protein (honey bee) (Unverified Allergy, Severe, Anaphylaxis, ) oxycodone (Unverified Allergy, Severe, Nausea/Vomiting, 02/22/18) Reported Meds & Prescriptions Reported Meds & Active Scripts Active Reported Wellbutrin SR 12 HR (Bupropion HCl) 150 Mg Tab 150 Mg PO Q12HR Depakote DR (Divalproex Sodium) 500 Mg Tabdr 500 Mg PO BID Review of Systems Except as stated in HPI: all other systems reviewed are Neg Physical Exam Narrative GENERAL: Anxious appearing, tearful SKIN: Focused skin assessment warm and dry. HEAD: Atraumatic. Normocephalic. EYES: Pupils equal and round. No injection or drainage. ENT: Moist mucous membranes NECK: Trachea midline. CARDIOVASCULAR: Regular rate and rhythm. No murmur appreciated. RESPIRATORY: Clear to auscultation. Breath sounds equal bilaterally. GASTROINTESTINAL: Abdomen soft, non-tender, nondistended. MUSCULOSKELETAL: Pain with flexion at the elbows and knees. NEUROLOGICAL: Awake and alert. No obvious cranial nerve deficits. Moving all extremities. Data Data Last Documented VS Vital Signs Date Time Temp Pulse Resp B/P (MAP) Pulse Ox O2 Delivery O2 Flow Rate FiO2 02/22/18 19:26 90 16 127/74 (91) 100 Room Air 02/22/18 17:09 98.6 Orders Orders Complete Blood Count With Diff (02/22/18 17:30) Comprehensive Metabolic Panel (02/22/18 17:30) Creatine Kinase (Cpk) (02/22/18 17:30) Sodium Chlor 0.9% 1000 Ml Inj (Ns 1000 M (02/22/18 18:00) Ed Urine Pregnancytest Poc (02/22/18 18:01) Morphine Inj (Morphine Inj) (02/22/18 18:15) Ketorolac Inj (Toradol Inj) (02/22/18 18:45) Labs Laboratory Tests Test 02/22/18 17:45 White Blood Count 9.7 TH/MM3 Red Blood Count 4.60 MIL/MM3 Hemoglobin 15.0 GM/DL Hematocrit 43.7 % Mean Corpuscular Volume 94.9 FL Mean Corpuscular Hemoglobin 32.6 PG Mean Corpuscular Hemoglobin Concent 34.3 % Red Cell Distribution Width 13.0 % Platelet Count 298 TH/MM3 Mean Platelet Volume 7.9 FL Neutrophils (%) (Auto) 81.5 % Lymphocytes (%) (Auto) 10.1 % Monocytes (%) (Auto) 6.6 % Eosinophils (%) (Auto) 0.3 % Basophils (%) (Auto) 1.5 % Neutrophils # (Auto) 8.0 TH/MM3 Lymphocytes # (Auto) 1.0 TH/MM3 Monocytes # (Auto) 0.6 TH/MM3 Eosinophils # (Auto) 0.0 TH/MM3 Basophils # (Auto) 0.1 TH/MM3 CBC Comment AUTO DIFF Differential Comment AUTO DIFF CONFIRMED Platelet Estimate NORMAL Platelet Morphology Comment NORMAL Red Cell Morphology Comment NORMAL Blood Urea Nitrogen 11 MG/DL Creatinine 0.99 MG/DL Random Glucose 96 MG/DL Total Protein 7.6 GM/DL Albumin 3.9 GM/DL Calcium Level 8.9 MG/DL Alkaline Phosphatase 64 U/L Aspartate Amino Transf (AST/SGOT) 11 U/L Alanine Aminotransferase (ALT/SGPT) 17 U/L Total Bilirubin 0.4 MG/DL Sodium Level 137 MEQ/L Potassium Level 3.8 MEQ/L Chloride Level 104 MEQ/L Carbon Dioxide Level 26.4 MEQ/L Anion Gap 7 MEQ/L Estimat Glomerular Filtration Rate 68 ML/MIN Total Creatine Kinase 55 U/L [facility] Medical Decision Making Medical Screen Exam Complete: Yes Emergency Medical Condition: Yes Interpretation(s) Afebrile, mild tachycardia, normotensive Differential Diagnosis medication side effect, rhabdomyolysis, conversion disorder Narrative Course This is a 27-year-old female who presents to the emergency department with pain all over her body several hours after taking Bactrim. She had a reaction similar to this in the past and her CPK was elevated at that time. Today her labs are all reassuring. She has a benign exam. She is tearful and anxious and I wonder if there is an underlying psychiatric component to her presentation. She was given Toradol and morphine and her symptoms improved. I do not think she has any indication for admission. Patient will be discharged home. Diagnosis Primary Impression: Pain Patient Instructions: General Instructions Additional Instructions: If you develop severe chest pain, shortness of breath, sweating, lightheadedness , dizziness or difficulty breathing return to the emergency department immediately. Followup with your primary care physician in 2-3 days if your symptoms are not resolved. Med/Other Pt SpecificInfo: Prescription(s) given Scripts Naproxen (Naproxen) 500 Mg Tab 500 MG PO BID Y for PAIN SCALE 4 TO 10, #20 TAB 0 Refills Prov: Katerin Bone MD 02/22/18 Disposition: 01 DISCHARGE HOME Condition: Stable Katerin Bone MD Feb 22, 2018 19:02
[2018-02-22 19:26] VITALS: BP 127/74; PULSE 90; RESP 16; O2SAT 100
[2018-02-22] MEDS ORDERED: NAPR500T2 PO (20:26)
[2018-02-22 20:30] VITALS: BP 125/76
== END 2018-02-22 20:39 | disposition home or self-care (01) ==
LOC: PHED 17:00
DX: R52 Pain, unspecified (principal); F90.9 Attention-deficit hyperactivity disorder, unspecified type; J45.909 Unspecified asthma, uncomplicated; F32.9 Major depressive disorder, single episode, unspecified
CPT/HCPCS: 80053; 82550; 84703; 85025; 96361; 96374; 96375; 99284; J1885; J2270; J7030